=== PATIENT | male | born 1980 | race Caucasian/White ===

== ENCOUNTER 2016-04-17 07:55 | Day surgery (SDC) | payer BC ==
[~2016-04-17 07:55] MED LIST: ACETAMINOPHEN 500 MG TABLET PO PRN; HYDROmorphone HCL 2 MG/ML VIAL IV PRN; MAG HYDROX/ALUMINUM HYD/SIMETH 30 ML UDC PO PRN; MAGNESIUM HYDROXIDE 30 ML UDC PO PRN; ONDANSETRON HCL/PF 2 MG/ML VIAL IV PRN; PROMETHAZINE HCL 25 MG in DEXTROSE 5 % IN WATER 50 ML IV PRN; RINGERS SOLUTION,LACTATED 1,000 ML IV PRN; ZOLPIDEM TARTRATE 5 MG TABLET PO PRN; ceFAZolin SODIUM 1 GM VIAL IV PRN; diphenhydrAMINE HCL 50 MG/ML VIAL IV PRN; oxyCODONE HCL/ACETAMINOPHEN 1 TAB TABLET PO PRN
[2016-04-17] MEDS ORDERED: RINGERS SOLUTION,LACTATED 1,000 ML IV ONE (10:58)
[2016-04-17 13:31] VITALS: BP 145/106
--- NOTE | 2016-04-17 14:05 | OR ---
Operative Report - Dictated Report Narrative: Date: 04/17/2016 Physician: Jayson Lynn M.D. 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 Lai Is a 36 year-old gentleman who has been followed in my clinic with complaints of shoulder pain consistent impingement and biceps tendinopathy. Physical exam and diagnostic imaging were consistent with his complaints and concern for labral and biceps pathology as well as impingement. Conservative measures have failed including, but not limited to, passage of time, activity modification, medications, physical therapy/home exercise program, or injections. The risks, benefits, and alternatives were discussed in clinic. The risks being , bleeding, infection, blood clots, nerve, tendon, ligament , blood vessel injury, persistent pain, arthrosis, stiffness, need for prolonged therapy, need for additional procedures, and persistent symptoms. Consent was obtained in the clinic. Procedure: After marking the correct extremity in the preoperative holding area, a timeout was performed in the operating room. IV antibiotics consisting of Ancef were administered prior to the procedure. A general followed by regional anesthetic was induced by the nurse resin shaver. This was in the supine position, then the patient was transitioned to a beachchair position with all bony prominences well-padded, head in neutral, the nonoperative arm well supported, and the legs padded with SCDs in place. The operative shoulder was then prepped and draped in a standard sterile fashion. Preoperatively the shoulder had full passive range of motion, and no gross instability. After marking out the bony landmarks , saline was infused into the joint through a posterior lateral portal site. A miki incision was made, and the blunt trocar and cannula was introduced into the shoulder joint. An accessory portal was placed in the rotator cuff interval using a spinal needle for guidance. Upon initial evaluation, the biceps tendon showed tendinopathy and partial tearing of the extra articular portion as it entered into the joint. The middle glenohumeral ligament was intact. Subscapularis tendon was unremarkable. The glenoid showed no arthrosis. The humeral head articular surface showed no arthrosis. The anterior labrum was frayed with a small perforation but no large tear. The superior labrum was intact. The pouch was unremarkable. The posterior labrum was unremarkable. The supraspinatus tendon was intact without tear. The infraspinatus tendon was intact without tear. Utilizing arthroscopic scissors after tagging the biceps tendon and a tenotomy was performed as it inserted onto the labrum. The remaining stump was debrided as well as the anterior labrum with a shaver. The remaining labrum was otherwise stable. Attention was then turned to the subacromial space. Subacromial bursectomy was performed utilizing the prior portals. The coracoacromial ligament was intact. The bursal side of the rotator cuff demonstrated no tear. The acromial arch and an anterior and lateral spurs consistent with his radiographs. Anterolateral portal and a cautery device was utilized in order to skeletonize the acromion. A barrel bur was then utilized in order to resect approximately 4-5 mm of bone off the anterior lateral aspect the acromion in order to flatten the undersurface of the acromion. Utilizing the anterior accessory portal this was extended and blunt dissection was carried down to the bicipital groove. The biceps tendon was identified and mobilized out of the groove. The groove was rasped and guidewires placed in the extra-articular portion of the bicipital groove. Was then drilled with an acorn reamer up to 8 mm and tapped. A 4-0 Vicryl was placed and the biceps tendon for interference and the biceps tendon was placed into the hole. The 8 mm interference screw was then placed securing the biceps tendon into the repair site. The excess tendon was then debrided. Attention was then turned to the distal clavicle. A longitudinal incision was made over the acromioclavicular joint. This was sharply dissected down to the chromic clavicular capsule. Cautery was utilized for hemostasis. A longitudinal capsulotomy was made and elevated off the anterior posterior aspects of the distal clavicle. There is notable hypertrophic bone and loss of joint space between the acromion and clavicle. Protecting the surrounding soft tissues, an oscillating saw was utilized in order to resect approximately 7-10 mm of bone from the distal clavicle. The remaining clavicle was stable after removing this. The shoulders place a range of motion and showed no remaining impingement between the acromion and the clavicle. Wounds were then thoroughly irrigated. The capsule was closed with interrupted 0 Vicryl to subcutaneous tissue with 3-0 Vicryl. Skin was closed with 4-0 nylon. The wounds were thoroughly irrigated. 0 Vicryl was utilized in order to repair the deltoid fascia. 3-0 Vicryl was placed in the subcutaneous tissue. The rotator cuff incision as well as the portal sites were closed with interrupted nylon. Dressings consisting of Xeroform, 4 x 4, ABD, soft roll, and tape were applied. All sponge, needle, blade, and instrument counts were correct prior to closing the wounds. The patient was awoken and transferred to the postanesthesia care unit in stable condition.
[2016-04-17] MEDS ORDERED: SENNOSIDES/DOCUSATE SODIUM 1 TAB TABLET PO SCH (21:00)
== END 2016-04-17 07:56 | disposition home or self-care (01) ==
LOC: AMB 07:55
PROVIDERS: ATTEND Orthopaedic Surgery
PROC: 0RNK4ZZ Release Left Shoulder Joint, Percutaneous Endoscopic Approach (ICD-10-PCS; 2016-04-17)
PROC: 0PBB0ZZ Excision of Left Clavicle, Open Approach (ICD-10-PCS; 2016-04-17)
PROC: 0LS40ZZ Reposition Left Upper Arm Tendon, Open Approach (ICD-10-PCS; 2016-04-17)
PROC: 0RHK04Z Insertion of Internal Fixation Device into Left Shoulder Joint, Open Approach (ICD-10-PCS; 2016-04-17)
PROC: 0RBK4ZZ Excision of Left Shoulder Joint, Percutaneous Endoscopic Approach (ICD-10-PCS; principal; 2016-04-17 09:00)
DX: S43.492A Other sprain of left shoulder joint, initial encounter (principal); M19.012 Primary osteoarthritis, left shoulder; M75.42 Impingement syndrome of left shoulder; M75.22 Bicipital tendinitis, left shoulder; F17.200 Nicotine dependence, unspecified, uncomplicated; Z68.30 Body mass index [BMI] 30.0-30.9, adult

== ENCOUNTER 2016-06-07 05:12 | Emergency (ER) | payer BC ==
[2016-06-07 05:20] VITALS: BP 158/87
[2016-06-07] MEDS ORDERED: diphenhydrAMINE HCL 50 MG/ML VIAL IM ONE (05:33)
[2016-06-07] MEDS ORDERED: METHYLPREDNISOLONE SOD SUCC/PF 40 MG/ML VIAL IM ONE (05:33)
--- NOTE | 2016-06-07 05:33 | ERNOTE ---
Integumentary HPI - Narrative Date of Service: 06/07/16 - General Time Seen by Provider: 06/07/16 05:30 Source: patient Exam Limitations: no limitations - Immun/Allergies/Home Medications Immunizations: IMMUNIZATION HX Immunizations Up to Date Yes History of Influenza Vaccine Yes Hx Pneumococcal Vaccination No Allergies/Adverse Reactions: Allergies Allergy/AdvReac Type Severity Reaction Status Date / Time No Known Allergies Allergy Verified 06/07/16 05:20 Home Medications: HOME MEDICATIONS NK [No Home Medication] 06/07/16 [Last Taken Unknown] - History of Present Illness Narrative: itchy rash which migrates. Began one hour ago. no new products. no fevers, chills or open lesions. No new foods or products used Location: Reports: lower extremity Quality: Reports: itching Severity: mild Review of Systems - Review of Systems Constitutional: Present: no symptoms reported EYE: Present: no symptoms reported ENT: Present: no symptoms reported Respiratory: Present: no symptoms reported Cardiology: Present: no symptoms reported Gastrointestinal/Abdominal: Present: no symptoms reported Genitourinary: Present: no symptoms reported Musculoskeletal: Present: no symptoms reported, See HPI - Patient's Past Medical History Patient History - Medical: Other Patient History - Cardiac/Respiratory: No pertinent hx Patient History - Cancer: No Hx of Cancer Patient History - Surgical Procedures: Other Patient History - Other: None - Family History Father Family History - Medical: No pertinent hx Family History - Cardiac/Respiratory: Hypertension Family History - Cancer: No pertinent family hx Mother Family History - Medical: No pertinent hx Family History - Cardiac/Respiratory: No pertinent hx Family History - Cancer: No pertinent family hx - Social History Living Situations: home Abuse History: No History of abuse Psych History: No pertinent hx Smoking Status: Never smoker Patient requests Smoking Cessation Consult: No Initiate information on Smoking Cessation: No Alcohol Use: rarely Drug Use: other - Immunizations Immunizations Up to Date: Yes Hx Pneumococcal Vaccination: No History of Influenza Vaccine: Yes Physical Exam - Physical Exam General Appearance: Present: wd/wn, alert, no apparent distress Ears, Nose, Throat: Present: normal ENT inspection Neck: Present: normal inspection, nontender Respiratory: Present: no respiratory distress, normal breath sounds, no accessory muscle use, chest nontender, lungs clear Cardiovascular/Chest: Present: regular rate, rhythm, no murmur, normal peripheral pulses Skin Exam: Present: warm/dry, other - pt has hives on dorsal aspect of both feet and on right hip. he has been scratching the corresponding areas and it is reddish ED Progress - Vital Signs Vital Signs: Vital Signs 06/07/16 05:17 Temperature 36.8 C Pulse Rate 89 Respiratory 20 Rate Blood Pressure 158/87 O2 Sat by Pulse 96 Oximetry - Progress/Reassessment Chief Complaint: Rash Departure Clinical Impression: Hives - Departure Disposition: Home self-care Condition: Good Instructions: Contact Dermatitis, [id number] Referrals: Sara Will MD [Primary Care Provider] -
[2016-06-07] MEDS ORDERED: METHYLPREDNISOLONE SOD SUCC/PF 40 MG/ML VIAL ONE (05:34)
[2016-06-07] MEDS ORDERED: diphenhydrAMINE HCL 25 MG CAPSULE ONE (05:34)
[2016-06-07] MEDS ORDERED: diphenhydrAMINE HCL 50 MG/ML VIAL ONE (05:40)
--- OUTSIDE RECORDS SUMMARY | 2016-06-07 05:49 | XMS REPORT | Continuity of Care Document ---
:1980 Author Organization [facility] ([facility]) Address [address] [place] [address] Phone [phone] Care Team Providers Name Role Phone Unavailable Primary Care Provider Unavailable Source Comments This disclosure is being made pursuant to the Care Everywhere program, applicable federal and state laws, and may not contain all informaitonavailable regarding this patient.[facility] ([facility]) Active Allergies and Adverse Reactions No Active Allergies Current Medications Not on file Active Problems Problem Noted Date Lumbago 04/21/2000 Social History Tobacco Use Types Packs/Day Years Used Date Never Assessed Last Filed Vital Signs Vital Sign Reading Time Taken Blood Pressure - - Pulse - - Temperature - - Respiratory Rate - - Height 1.8 m (5' 10.86") 04/21/2000 2:22 PM [employer] Weight 83.997 kg (185 lb 2.9 oz) 04/21/2000 2:22 PM [employer]ISING DIRECT[employer] Body Mass Index 25.93 04/21/2000 2:22 PM [employer] Oxygen Saturation - - Plan of Care Health Maintenance Due Date Last Done Comments Hepatitis B Vaccine (1 of 3 - Primary Series) 1980 Tdap Vaccine 1991 Lipid Disorder Screening 1998 MMR Vaccine 1998 Td Vaccine 1998 Varicella Vaccine (1 of 2 - Adult - No Evidence of 1998 Immunity) Influenza Vaccine: Seasonal (#1) 10/28/2015 Results from Last 3 Months Not on file
--- OUTSIDE RECORDS SUMMARY | 2016-06-07 05:49 | XMS REPORT | Continuity of Care Document ---
:1980 Author Organization [facility] [place] [address] Care Team Providers Name Role Phone Unavailable Primary Care Provider Unavailable Source Comments This disclosure is being made pursuant to the [place] program and maynot contain all information available regarding this patient.[facility] Active Allergies and Adverse Reactions Not on File Current Medications Be aware that medications may not be up to date as of this document. Alwaysverify current medications with the patient. Not on file Active Problems Not on file Social History Tobacco Use Types Packs/Day Years Used Date Never Assessed Plan of Care Health Maintenance Due Date Last Done Comments Retired-Pertussis Vaccine Adult 1999 Retired-Tetanus Vaccine Adult 1999 Retired-INFLUENZA VACCINE 11/27/2014 Results from Last 3 Months Not on file
== END 2016-06-07 05:45 | disposition home or self-care (01) ==
LOC: ER 05:12
DX: L50.9 Urticaria, unspecified (principal)

== ENCOUNTER 2017-01-02 08:01 | Emergency (ER) | payer BC ==
[2017-01-02 08:14] VITALS: BP 148/62
[2017-01-02] MEDS ORDERED: FAMOTIDINE 20 MG TABLET PO ONE (09:27)
[2017-01-02] MEDS ORDERED: predniSONE 20 MG TABLET PO ONE (09:27)
[2017-01-02] MEDS ORDERED: diphenhydrAMINE HCL 25 MG CAPSULE PO ONE (09:27)
--- NOTE | 2017-01-02 09:27 | ERNOTE ---
Integumentary HPI - Narrative Date of Service: 01/02/17 - General Presenting Symptoms: insect bite Time Seen by Provider: 01/02/17 09:14 Source: patient Exam Limitations: no limitations - Immun/Allergies/Home Medications Immunizations: IMMUNIZATION HX Immunizations Up to Date Yes History of Influenza Vaccine Yes Hx Pneumococcal Vaccination No Allergies/Adverse Reactions: Allergies Allergy/AdvReac Type Severity Reaction Status Date / Time No Known Allergies Allergy Verified 01/02/17 08:14 Home Medications: HOME MEDICATIONS NK [No Home Medication] 06/07/16 [Last Taken Unknown] - History of Present Illness Narrative: 36 yo WM who says he had a insect bite two days ago on the inner aspect of his left lower knee. Didn't bother him until yesterday after standing at work most of day. Noted increased pain at the bite site and along lower wound on upper calf. No fever, chills. No swelling but increased halo of redness. Review of Systems - Review of Systems Constitutional: Present: no symptoms reported EYE: Present: no symptoms reported ENT: Present: no symptoms reported Respiratory: Present: no symptoms reported Cardiology: Present: no symptoms reported Endocrine: Present: no symptoms reported - Patient's Past Medical History Patient History - Medical: No pertinent hx Patient History - Cardiac/Respiratory: No pertinent hx Patient History - Cancer: No Hx of Cancer Patient History - Surgical Procedures: Other Patient History - Other: None - Family History Father Family History - Medical: No pertinent hx Family History - Cardiac/Respiratory: Hypertension Family History - Cancer: No pertinent family hx Mother Family History - Medical: No pertinent hx Family History - Cardiac/Respiratory: No pertinent hx Family History - Cancer: No pertinent family hx - Social History Abuse History: No History of abuse Psych History: No pertinent hx Smoking Status: Never smoker Have you smoked in the past 12 months: No Do you dip or chew tobacco: Yes - Immunizations Immunizations Up to Date: Yes Hx Pneumococcal Vaccination: No History of Influenza Vaccine: Yes Physical Exam - Physical Exam General Appearance: Present: wd/wn, alert, mild distress Eye Exam: PERRL: bilateral, EOMI: bilateral Ears, Nose, Throat: Present: normal ENT inspection Neck: Present: normal inspection Respiratory: Present: no respiratory distress, normal breath sounds Cardiovascular/Chest: Present: regular rate, rhythm, no murmur Extremity Exam: Present: other - Slightly raised bite with dark pinpoint center and halo of erythemia for about 4 cm. Slight tenderness on inferior portion of halo. No cords or induration. Skin Exam: Present: normal color, warm/dry ED Progress - Vital Signs Patient's Vital Signs:: I have reviewed the patient's vital signs. Vital Signs: Vital Signs 01/02/17 08:11 Temperature 37.1 C Pulse Rate 70 Respiratory 16 Rate Blood Pressure 148/62 O2 Sat by Pulse 96 Oximetry - Progress/Reassessment Chief Complaint: Insect Bite Plan - Plan Plan: Discussed treatment of elevation, using benadryl, pepcid as directed Using tylenol alternating with ibuprofen every 3 hours Follow up with PCP Departure Clinical Impression: Insect bite - Departure Disposition: Home self-care Condition: Good Instructions: Insect Bite Additional Instructions: Take benadryl 25 mg every 6-8 hours Take pepcid 20 mg twice a day Use ibuprofen 600 mg alternating with tylenol 650 mg every 3 hours Keep elevated for 48 hours Follow up with PCP return to ED if condition worsens Referrals: Sara Will MD [Primary Care Provider] -
[2017-01-02] MEDS ORDERED: predniSONE 20 MG TABLET ONE (09:32)
[2017-01-02] MEDS ORDERED: diphenhydrAMINE HCL 25 MG CAPSULE ONE (09:32)
[2017-01-02] MEDS ORDERED: FAMOTIDINE 20 MG TABLET ONE (09:32)
== END 2017-01-02 09:37 | disposition home or self-care (01) ==
LOC: ER 08:01
DX: S80.269A Insect bite (nonvenomous), unspecified knee, initial encounter (principal)